=== PATIENT | male | born 1985 | race Two or more races ===

== ENCOUNTER 2019-07-06 23:58 | Emergency (ER) | payer OTHER ==
[~2019-07-06] VITALS: Ht 193 cm; Wt 95.3 kg
[2019-07-07 00:18] VITALS: BP 132/82
[2019-07-07] MEDS ORDERED: IBUPROFEN600 MG ORAL (00:33)
[2019-07-07 00:36] VITALS: BP 132/82
--- NOTE | 2019-07-07 02:12 | Emergency Room Report ---
History of Present Illness General Chief Complaint: Pain Source: Patient Present Illness HPI Patient had presented with initial complaint of back and neck pain Upon evaluation patient mainly complains of right foot pain And body ache reports that he is been walking more than usual denies any fall or trauma denies any chest pain or shortness of breath denies any vomiting denies any change in the color of urine Denies any posterior neck pain or photophobia denies any recent travel or trauma COVID-19 risk:Contact w/high r: No COVID-19 risk:Travel to affect: No Has patient experienced riddle: No Allergies: Coded Allergies: No Known Allergies (Unverified , 07/07/19) Patient History Past Medical History: see triage record Reviewed Nursing Documentation: PMH: Agreed; PSxH: Agreed Nursing Documentation-PMH Hx Cardiac Problems: Yes - anemia Hx Asthma: Yes Hx COPD: Yes - bronchitis Hx Seizures: Yes Review of Systems All Other Systems: negative except mentioned in HPI Physical Exam Vital Signs Date Time Temp Pulse Resp B/P (MAP) Pulse Ox O2 Delivery O2 Flow Rate FiO2 07/07/19 00:08 97.7 94 16 132/82 (99) 99 Room Air Sp02 EP Interpretation: reviewed, normal General Appearance: well appearing, no apparent distress Head: normocephalic, atraumatic Eyes: bilateral eye PERRL, bilateral eye EOMI ENT: hearing grossly normal, normal pharynx, TMs + canals normal, uvula midline Neck: full range of motion, supple, no meningismus, no bony tend Respiratory: lungs clear, normal breath sounds, no rhonchi, no respiratory distress, no retraction, no accessory muscle use Cardiovascular #1: normal peripheral pulses, regular rate, rhythm, no edema, no gallop, no JVD, no murmur Gastrointestinal: normal bowel sounds, non tender, soft, no mass, no organomegaly, non-distended, no guarding, no hernia, no pulsatile mass, no rebound Musculoskeletal: normal inspection Neurologic: motor strength/tone normal, web content specialist III-XII nml as tested, oriented x3 , sensory intact, responsive Psychiatric: mood/affect normal Skin: no rash Lymphatic: normal inspection, no adenopathy Medical Decision Making Diagnostic Impression: Primary Impression: myalgia ER Course Patient appears well clinically does not appear septic or toxic is afebrile consideration for overuse Syndrome is possible with his foot Also consideration for early flu symptoms Patient is otherwise hemodynamically stable and is appropriate for close outpatient follow-up I did not feel patient met criteria for acute work-up in the emergency room Last Vital Signs Date Time Temp Pulse Resp B/P (MAP) Pulse Ox O2 Delivery O2 Flow Rate FiO2 07/07/19 00:36 97.7 94 16 132/82 99 Room Air Status: unchanged Disposition: HOME, SELF-CARE Condition: Stable Scripts Ibuprofen* (MOTRIN*) 600 Mg Tablet 600 MG ORAL Q8H PRN for For Pain, #20 TAB 0 Refills Prov: Anne Kidd DO 07/07/19 Referrals: JULIA ROSEN [facility],REFERRING (PCP) [facility]. [facility] Patient Instructions: Muscle Pain, Adult Additional Instructions: Patient is provided with the discharge instructions notified to follow up with primary doctor in the next 2-3 days otherwise return to the er with any worsening symptoms. Please note that this report is being documented using [employer] technology. This can lead to erroneous entry secondary to incorrect interpretation by the dictating instrument. Anne Kidd DO Jul 07, 2019 02:12
== END 2019-07-07 00:36 | disposition home or self-care (01) ==
LOC: EMR 07-07 00:19
DX: M79.10 Myalgia, unspecified site (principal); J44.9 Chronic obstructive pulmonary disease, unspecified; G40.909 Epilepsy, unspecified, not intractable, without status epilepticus
CPT/HCPCS: 99281